=== PATIENT | male | born 1975 | race Caucasian/White ===

== ENCOUNTER 2018-04-05 09:36 | Emergency (ER) | payer SELFPAY ==
[2018-04-05] MEDS ORDERED: Lidocaine 1% w/Epinephrine 1:100K 20 ML VIAL ONE (09:47)
== END 2018-04-05 10:51 | disposition home or self-care (01) ==
LOC: ERS 09:36
DX: L02.212 Cutaneous abscess of back [any part, except buttock and flank] (principal); L02.11 Cutaneous abscess of neck; F31.9 Bipolar disorder, unspecified; F17.210 Nicotine dependence, cigarettes, uncomplicated; D57.40 Sickle-cell thalassemia without crisis; Z79.899 Other long term (current) drug therapy
CPT/HCPCS: 10061; J2001

== ENCOUNTER 2018-04-08 09:18 | Emergency (ER) | payer SELFPAY ==
[2018-04-08] MEDS ORDERED: Ketorolac Tromethamine 60 MG/2 ML VIAL ONE (09:51)
[2018-04-08 11:29] LABS: Bilirubin Negative (Negative); Blood, Urine Negative (Negative); Clarity CLEAR (Clear); Glucose, Urine (Dipstick) Negative (Negative); Leukocyte Negative (Negative); Nitrite Negative (Negative); Protein, Urine (Dipstick) Negative (Neg-Trace); Specific Gravity, Urine 1.023 (1.002-1.036); pH, Urine 6.5 (5.0-9.0)
--- NOTE | 2018-04-08 12:02 | ULT ---
ULTRASOUND TESTICULAR: History Left-sided testicular and groin pain for the past 5 days. COMPARISON: None. TECHNIQUE: Real-time, ellsworth scale, color Doppler, and spectral analysis of the testicles is performed. FINDINGS: The right testicle measures 4 x 2.5 x 2.5 c and the left testicle measures 4.3 x 2.9 x 2 cm. Both ep ididymi are normal. Trace fluid. Small varicoceles bilaterally. IMPRESSION: Small bilateral varicoceles. POS: [id number]
== END 2018-04-08 11:10 | disposition home or self-care (01) ==
LOC: ERS 09:18
DX: N45.1 Epididymitis (principal); D57.40 Sickle-cell thalassemia without crisis; F31.9 Bipolar disorder, unspecified; F17.210 Nicotine dependence, cigarettes, uncomplicated; Z79.899 Other long term (current) drug therapy
CPT/HCPCS: 76870; 81003; 87086; 93976; 96372; J1885

== ENCOUNTER 2018-04-13 20:19 | Emergency (ER) | payer SELFPAY ==
[2018-04-13] MEDS ORDERED: Ondansetron ODT 4 MG TAB ONE (21:53)
[2018-04-13] MEDS ORDERED: Dicyclomine 20 MG TAB ONE (21:53)
[2018-04-13] MEDS ORDERED: Ketorolac Tromethamine 30 MG/ML VIAL ONE (21:54)
[2018-04-13] MEDS ORDERED: Ondansetron PF 4 MG/2 ML Vial ONE (21:54)
[2018-04-13] MEDS ORDERED: Pantoprazole 40 MG VIAL ONE (21:54)
[2018-04-13 22:02] LABS: #Eosinphils 0.1 thou/uL (0.0-0.7); #Lymphocytes 1.9 thou/uL (1.20-3.40); #Monocytes 0.5 thou/uL (0.11-0.59); #Neutrophils 8.1 thou/uL (1.40-6.50); %Basophils 0.1 % (0.0-1.0); %Eosinophils 0.6 % (0.0-10.0); %Monocytes 4.2 % (0.0-10.0); %Neutrophils 77.1 % (42.0-75.0); Hemoglobin 12.5 g/dL (14.0-18.0); Hypochromia SLIGHT = 6-15 cells (100X) (0-5/hpf); MDiff Complete? YES; Mean Corpuscular HGB CONC 33.2 g/dL (32.0-36.0); Mean Corpuscular Hemoglobin 22.2 pg (27.0-31.0); Mean Corpuscular Volume 66.9 fL (78.0-98.0); Mean Platelet Volume 7.6 fL (7.4-10.4); Microcytosis SLIGHT = 6-15 cells (100X) (0-5/hpf); Platelet Count 167 thou/uL (130-400); RBC Distribution Width 15.8 % (11.5-14.5); Red Blood Cell (RBC) Count 5.64 mill/uL (4.70-6.10); White Blood Cell (WBC) Count 10.5 thou/uL (4.8-10.8)
[2018-04-13 22:11] LABS: ALT (SGPT) 15 U/L (8-55); AST (SGOT) 14 U/L (5-34); Albumin 4.3 g/dL (3.5-5.0); Alkaline Phosphatase 78 U/L (40-150); Anion Gap 7 mmol/L (10-20); BUN (Urea Nitrogen) 12 mg/dL (8.9-20.6); Bilirubin, Total 0.8 mg/dL (0.2-1.2); Calc. Creatinine Clearance 0 mL/min (70-130); Calcium 9.5 mg/dL (7.8-10.44); Carbon Dioxide 28 mmol/L (22-29); Chloride 106 mmol/L (98-107); Estimated GFR-MDRD Greater than 90; Globulin 2.7 g/dL (2.4-3.5); Glucose 131 mg/dL (70-105); Potassium 3.4 mmol/L (3.5-5.1); Sodium 138 mmol/L (136-145)
== END 2018-04-13 23:43 | disposition home or self-care (01) ==
LOC: ERS 20:19
DX: R11.0 Nausea (principal); M79.10 Myalgia, unspecified site; E11.9 Type 2 diabetes mellitus without complications; F31.9 Bipolar disorder, unspecified; F17.210 Nicotine dependence, cigarettes, uncomplicated; Z79.899 Other long term (current) drug therapy
CPT/HCPCS: 36415; 80053; 85025; 96361; 96374; 96375; C9113; J1885; J2405; Q0162

== ENCOUNTER 2018-05-13 19:38 | Emergency (ER) | payer MEDICARE, MEDICAID | END 2018-05-13 20:48 | disposition home or self-care (01) | LOC: ERS 19:38 | DX: L02.212 Cutaneous abscess of back [any part, except buttock and flank] (principal); L03.312 Cellulitis of back [any part except buttock and flank]; E11.9 Type 2 diabetes mellitus without complications; F31.9 Bipolar disorder, unspecified; F17.210 Nicotine dependence, cigarettes, uncomplicated; Z79.899 Other long term (current) drug therapy | CPT/HCPCS: 99283 ==